=== PATIENT | female | born 1960 | race Two or more races ===

== ENCOUNTER 2025-02-14 15:00 | Inpatient (IN) | payer OTHER, MEDICAID ==
[~2025-02-14] VITALS: Ht 157.5 cm; Wt 86.7 kg
[2025-02-14 16:26] LABS: Urine Bacteria None Seen /hpf (None Seen)
[2025-02-14 16:40] LABS: Urine Blood Negative /uL (Negative); Urine Clarity Clear (Clear); Urine Color Light-Yellow (Yellow); Urine Protein, UAD Negative (Negative); Urine Specific Gravity 1.019 (1.001-1.035); Urine Squamous Epithelial Cell FEW /hpf (<5); Urine Urobilinogen Normal (Negative); Urine WBC 1 /HPF (0-5); Urine pH 6.5 (5.0-9.0)
[2025-02-14 17:47] LABS: Basophils # (auto) 0.1 10 ^3/uL (0-0.2); Basophils % (auto) 0.7 % (0.0-2.0); Eosinophils # (auto) 0 10 ^3/uL (0-0.8); Eosinophils % (auto) 0.3 % (0.0-7.0); Hematocrit 48.3 % (36.0-46.0); Hemoglobin 16.3 g/dL (12.2-16.2); Lymphocytes # (auto) 1.4 10 ^3/uL (0.4-5.4); Lymphocytes % (auto) 16.6 % (10.0-50.0); Mean Corpuscular Hemoglobin 33.1 pg (28.0-32.0); Mean Corpuscular Hgb Conc. 33.8 g/dL (32.0-36.0); Mean Corpuscular Volume 98.1 fL (80.0-100.0); Monocytes # (auto) 0.3 10 ^3/uL (0-1.3); Monocytes % (auto) 3.6 % (0.0-12.0); Neutrophils # (auto) 6.5 10 ^3/uL (1.6-8.6); Neutrophils % (auto) 78.8 % (37.0-80.0); Nucleated Red Blood Cells % 0.3 %; Platelet Count (auto) 203 10^3/uL (140-450); Red Blood Cells 4.92 10^6/uL (4.0-5.20); Red Cell Distribution Width 14.1 % (11.8-14.3); White Blood Cell 8.2 10^3/uL (4.4-10.8)
--- NOTE | 2025-02-14 17:57 | ED.PDOC ---
Back pain HPI HPI Comments 64 y.o female presents to the ED via EMS for a chief complaint of right sided abdomen pain radiating to her back that started one week ago s/p sneezing. Patient reports pain is constant and sharp with no alleviating factors. Patient reports 25 years ago having same strain that went away on its own but states since that sneeze, she feels that pain reactivated. Chief Complaint: Flank Pain Time Seen by MD: 17:50 Reviewed Notes: Nurses Notes, Marine Equipment Design Engineer Notes, Medications, Allergies Allergies: Coded Allergies: NO KNOWN ALLERGIES (Unverified , 02/14/25) Home Meds Active Scripts Gabapentin (Once-Daily) (Gabapentin) 300 Mg Tab, 300 MG PO Q6HP PRN for 10 Days, #40 TAB Prov:SHIN LEWIS MD 02/14/25 Information Source: Patient Mode of Arrival: EMS Timing: Weeks (1) Duration: Since onset Severity: Moderate Quality: Stabbing Onset: Spontaneous History of: None Modifying Factors: Nothing Associated signs and symptoms: Other Past Medical History PAST MEDICAL HISTORY: Denies Surgical History: Denies all surgeries ELECTRONIC DEVICE REPAIRER History: No Pertinent ELECTRONIC DEVICE REPAIRER History Family History Family History: Reviewed,noncontributory to illness Social History Smoker: Non-Smoker Alcohol: Denies ETOH Use Drugs: Denies Drug Use Lives In: Home Constitutional: denies: chills, diaphoresis, fatigue, fever, malaise, sweats, weakness, others EENTM: denies: blurred vision, double vision, ear bleeding, ear discharge, ear drainage, ear pain, ear ringing, eye pain, eye redness, hearing loss, mouth pain, mouth swelling, nasal discharge, nose bleeding, nose congestion, nose pain, photophobia, tearing, throat pain, throat swelling, voice changes, others Respiratory: denies: cough, hemoptysis, orthopnea, SOB at rest, shortness of breath, SOB with excertion, stridor, wheezing, others Cardiovascular: denies: chest pain, dizzy spells, diaphoresis, Dyspnea on exertion, edema, irregular heart beat, left arm pain, lightheadedness, palpitations, PND, syncope, others Gastrointestinal: denies: abdomen distended, abdominal pain, blood streaked bowels, constipated, diarrhea, dysphagia, difficulty swallowing, hematemesis, melena, nausea, poor appetite, poor fluid intake, rectal bleeding, rectal pain, vomiting, others Genitourinary: denies: abnormal vagina bleeding, burning, dyspareunia, dysuria, flank pain, frequency, hematuria, incontinence, pain, , vagina discharge, urgency, others Neurological: denies: dizziness, fainting, headache, left sided numbness, left sided weakness, numbness, paresthesia, pre-existing deficit, right sided numbness, right sided weakness, seizure, speech problems, tingling, tremors, weakness, others Musculoskeletal: reports: others (right sided abdomen pain radiating to her flank and back ); denies: back pain, gout, joint pain, joint swelling, muscle pain, muscle stiffness, neck pain Integumetry: denies: bruises, change in color, change in hair/nails, dryness, laceration, lesions, lumps, rash, wounds, others Allergic/Immunocompromised: denies: Difficulty Healing, Frequent Infections, Hives, Itching, others Hematologic/Lymphatic: denies: anemia, blood clots, easy bleeding, easy bruising, swollen glands, others Endocrine: denies: excessive hunger, excessive sweating, excessive thirst, excessive urination, flushing, intolerance to cold, intolerance to heat, unexplained weight gain, unexplained weight loss, others Psychiatric: denies: anxiety, bipolar disorder, depression, hopeless, panic disorder, schizophrenia, sleepless, suicidal, others All Other Systems: Reviewed and Negative Physical Exam General Appearance: No Apparent Distress, Normal HEENT: Normal ENT Inspection, Pharynx Normal, TMs Normal Neck: Full Range of Motion, Non-Tender, Normal, Normal Inspection Respiratory: Chest Non-Tender, Lungs Clear, No Accessory Muscle Use, No Respiratory Distress, Normal Breath Sounds Cardiovascular: No Edema, No JVD, No Murmur, No Gallop, Normal Peripheral Pulses, Regular Rate/Rhythm Breast Exam: Deferred Gastrointestinal: No Organomegaly, Non Tender, No Pulsatile Mass, Normal Bowel Sounds, Soft Genitalia: Deferred Pelvic: Deferred Rectal: Deferred Extremities: No calf tenderness, Normal capillary refill, Normal inspection, Normal range of motion, Non-tender, No pedal edema Musculoskeletal : Location: Right Extremity Location: Back, Other (flank ) Apperance: Tenderness: Mild Neurologic: Alert, locomotive boilermaker II-XII nml as Tested, No Motor Deficits, Normal Affect, Normal Mood, No Sensory Deficits Cerebellar Function: Normal Reflexes: Normal Skin: Dry, Normal Color, Warm Lymphatic: No Adenopathy Was a procedure done? Was a procedure done?: No Back Pain Differential Dx Differential Diagnosis: Fracture, Musculoskeletal Pain, Strain X-Ray, Labs, Meds, VS Vital Signs Date Time Temp Pulse Resp B/P (MAP) Pulse Ox O2 Delivery O2 Flow Rate FiO2 02/14/25 15:14 98.3 68 20 119/51 (73) 95 98.3 Lab Test 02/14/25 17:15 02/14/25 16:24 Range/Units White Blood Count 8.2 4.4-10.8 10^3/uL Red Blood Count 4.92 4.0-5.20 10^6/uL Hemoglobin 16.3 H 12.2-16.2 g/dL Hematocrit 48.3 H 36.0-46.0 % Mean Corpuscular Volume 98.1 80.0-100.0 fL Mean Corpuscular Hemoglobin 33.1 H 28.0-32.0 pg Mean Corpuscular Hemoglobin Concent 33.8 32.0-36.0 g/dL Red Cell Distribution Width 14.1 11.8-14.3 % Platelet Count 203 140-450 10^3/uL Mean Platelet Volume 8.3 6.9-10.8 fL Neutrophils (%) (Auto) 78.8 37.0-80.0 % Lymphocytes (%) (Auto) 16.6 10.0-50.0 % Monocytes (%) (Auto) 3.6 0.0-12.0 % Eosinophils (%) (Auto) 0.3 0.0-7.0 % Basophils (%) (Auto) 0.7 0.0-2.0 % Neutrophils # (Auto) 6.5 1.6-8.6 10 ^3/uL Lymphocytes # (Auto) 1.4 0.4-5.4 10 ^3/uL Monocytes # (Auto) 0.3 0-1.3 10 ^3/uL Eosinophils # (Auto) 0 0-0.8 10 ^3/uL Basophils # (Auto) 0.1 0-0.2 10 ^3/uL Nucleated Red Blood Cells 0.3 % Sodium Level 137 136-145 mmol/L Potassium Level 4.1 3.5-5.1 mmol/L Chloride Level 107 98-107 mmol/L Carbon Dioxide Level 23 20-31 mmol/L Anion Gap 7 5-15 Blood Urea Nitrogen 11 9-23 mg/dL Creatinine 0.76 0.550-1.02 mg/dL Glomerular Filtration Rate Calc 86 >90 mL/min BUN/Creatinine Ratio 14.5 10.0-20.0 Serum Glucose 124 H 74-106 mg/dL Calcium Level 9.8 8.7-10.4 mg/dL Total Bilirubin 0.3 0.2-1.0 mg/dL Aspartate Amino Transferase (AST) 15 13-40 U/L Alanine Aminotransferase (ALT) 16 7-40 U/L Alkaline Phosphatase 103 46-116 U/L Total Protein 7.5 5.7-8.2 g/dL Albumin 4.7 3.2-4.8 g/dL Lipase 122 H 12-53 U/L Urine Color Light-yellow Yellow Urine Clarity Clear Clear Urine pH 6.5 5.0-9.0 Urine Specific [place] 1.019 1.001-1.035 Urine Protein Negative Negative Urine Ketones Negative Negative Urine Blood Negative Negative /uL Urine Nitrite Negative Negative Urine Bilirubin Negative Negative Urine Urobilinogen Normal Negative mg/dL Urine Leukocyte Esterase Negative Negative /uL Urine RBC 1 0 - 4 /hpf Urine Microscopic WBC 1 0-5 /HPF Urine Squamous Epithelial Cells Few <5 /hpf Urine Bacteria None seen None Seen /hpf Urine Glucose Normal Normal mg/dL Exam: CT CT AB PEL WO CON-NO ORAL OR IV History: right flank pain Comparison Study: None available at time of dictation. TECHNIQUE: Multidetector CT of the abdomen was performed from lung bases to pubic symphysis. Imaging was performed without IV contrast. Axial, coronal and sagittal multiplanar reformats were obtained from the axial data set by the technologist. Radiation Dose Information: CT Dose: CTDI volume is 18.45 mGy. Dose-length product is 989.5 mGy*cm FINDINGS: Evaluation of solid organs is limited due to lack of intravenous contrast use. Findings: Lung Bases: No acute or significant lung base finding. Normal heart size. No pleural or pericardial effusion. Liver: The liver is normal in size. No focal lesions. Gallbladder and Biliary Tree: Gallbladder has been surgically removed. Spleen: Unremarkable Pancreas: The pancreas is grossly normal in appearance. Adrenal Glands: Unremarkable Kidneys: . No nephrolithiasis on the right. Radiographically there is no evidence nephrosis on the right. Multiple surgical clips in the left renal fossa and findings suggesting a nephrectomy. Bladder: Grossly unremarkable for degree of distention. There is a round near the right ureteral vesicle junction. This may represent a calcified phlebolith or a distal ureteral calculus. Bowel: The stomach is grossly normal in appearance. Small bowel and colon are normal in caliber and distribution. The appendix is not visualized; however, no secondary findings of acute appendicitis identified. Ascites: Absent Lymphadenopathy: No mesenteric, retroperitoneal or periportal lymphadenopathy. Abdominal Wall and Mesentery: Unremarkable. Vasculature: The visualized abdominal aorta is normal in size and caliber. Evaluation of abdominal and pelvic vessels is limited due to lack of intravenous contrast. Pelvic Organs: Unremarkable Musculoskeletal: No aggressive focal bony lesions, acute fractures or disloca tion. Soft tissues: Unremarkable IMPRESSION: 1. Patient is status post left nephrectomy 2. No nephrolithiasis or hydronephrosis on the right. 3. 5 mm round calcification near the right ureterovesical junction. This may represent a distal ureteral calculus or phlebolith. If this is a distal right ureteral calculus should be evidence of hydronephrosis which is not apparent on this CT. Consider right renal ultrasound for further evaluation. Time of 1ST Reevaluation: 20:51 Reevaluation 1ST: Unchanged Patient Education/Counseling: Diagnosis, Treatment, Prognosis Family Education/Counseling: No Family Present Departure 1 Departure Time of Disposition: 20:51 Impression: Primary Impression: Muscular abdominal pain in right flank Additional Impression: Right flank pain Disposition: 01 HOME / SELF CARE / HOMELESS Condition: Stable e-Prescriptions Gabapentin (Once-Daily) (Gabapentin) 300 Mg Tab 300 MG PO Q6HP PRN for 10 Days, #40 TAB Prov: SHIN LEWIS MD 02/14/25 Discharged With: Self Critical Care Note Critical Care Time?: No Stability Stability form required: No I personally scribed for SHIN LEWIS MD ([email or web address]) on 02/14/25 at 17:57. Electronically submitted by Cristina Dutta ([facility]). I personally scribed for SHIN LEWIS MD ([email or web address]) on 02/14/25 at 20:24. Electronically submitted by Cristina Dutta ([facility]). SHIN LEWIS MD Feb 14, 2025 17:57
[2025-02-14 17:59] LABS: Alanine Aminotransferase 16 U/L (7-40); Albumin 4.7 g/dL (3.2-4.8); Alkaline Phosphatase 103 U/L (46-116); Anion Gap 7 (5-15); Aspartate Aminotransferase 15 U/L (13-40); BUN/Creatinine Ratio 14.5 (10.0-20.0); Blood Urea Nitrogen 11 mg/dL (9-23); Calcium 9.8 mg/dL (8.7-10.4); Carbon Dioxide 23 mmol/L (20-31); Potassium 4.1 mmol/L (3.5-5.1); Sodium 137 mmol/L (136-145); Total Protein 7.5 g/dL (5.7-8.2)
[2025-02-14 18:00] LABS: Bilirubin, Total 0.3 mg/dL (0.2-1.0)
[2025-02-14 18:04] LABS: Chloride 107 mmol/L (98-107); Glucose 124 mg/dL (74-106); Lipase 122 U/L (12-53)
--- NOTE | 2025-02-14 20:07 | DVH ---
Exam: CT CT AB PEL WO CON-NO ORAL OR IV History: right flank pain Comparison Study: None available at time of dictation. TECHNIQUE: Multidetector CT of the abdomen was performed from lung bases to pubic symphysis. Imaging was performed without IV contrast. Axial, coronal and sagittal multiplanar reformats were obtained fr om the axial data set by the technologist. Radiation Dose Information: CT Dose: CTDI volume is 18.45 mGy. Dose-length product is 989.5 mGy*cm FINDINGS: Evaluation of solid organs is limited due to lack of intravenous contrast use. Findings: Lung Bases: No acute or significant lung base finding. Normal heart size. No pleural or pericardial effusion. Liver: The liver is normal in size. No focal lesions. Gallbladder and Biliary Tree: Gallbladder has been surgically removed. Spleen: Unremarkable Pancreas: The pancreas is grossly normal in appearance. Adrenal Glands: Unremarkable Kidneys: . No nephrolithiasis on the right. Radiographically there is no evidence nephrosis on the ri ght. Multiple surgical clips in the left renal fossa and findings suggesting a nephrectomy. Bladder: Grossly unremarkable for degree of distention. There is a round near the right ureteral vesi brigido junction. This may represent a calcified phlebolith or a distal ureteral calculus. Bowel: The stomach is grossly normal in appearance. Small bowel and colon are normal in caliber and d istribution. The appendix is not visualized; however, no secondary findings of acute appendicitis id entified. Ascites: Absent Lymphadenopathy: No mesenteric, retroperitoneal or periportal lymphadenopathy. Abdominal Wall and Mesentery: Unremarkable. Vasculature: The visualized abdominal aorta is normal in size and caliber. Evaluation of abdominal a nd pelvic vessels is limited due to lack of intravenous contrast. Pelvic Organs: Unremarkable Musculoskeletal: No aggressive focal bony lesions, acute fractures or dislocation. Soft tissues: Unremarkable IMPRESSION: 1. Patient is status post left nephrectomy 2. No nephrolithiasis or hydronephrosis on the right. 3. 5 mm round calcification near the right ureterovesical junction. This may represent a distal urete ral calculus or phlebolith. If this is a distal right ureteral calculus should be evidence of hydrone phrosis which is not apparent on this CT. Consider right renal ultrasound for further evaluation. Radiation optimization: All CT scans at this facility use at least one of these dose optimization jeremiah hniques: automated exposure control mA and/or kV adjustment per patient size (includes targeted exam s where dose is matched to clinical indication) or iterative reconstruction. HS:Y
[2025-02-14] MEDS ORDERED: GABA300T4 PO (20:50)
[2025-02-14] MEDS: HYDROcodone-ACET 10/325MG TAB PO ONE (21:17)
[2025-02-14] MEDS: ONDANSETRON HCL 4 MG/2 ML VIAL IV ONE (21:41)
[2025-02-14] MEDS: SODIUM CHLORIDE 0.9% 1,000 ML IV ONE (21:41)
[2025-02-14] MEDS: MORPHINE SULFATE 4 MG/ML SYR/VIAL IV ONE (21:53)
[2025-02-15] VITALS (7 sets, daily range): BP systolic 112–157; BP diastolic 59–74; PULSE 18–106; RESP 18–20; TEMP 97.9–99.1; O2SAT 92–96
--- NOTE | 2025-02-15 01:05 | DVHHPRES ---
History of Present Illness Resident Creating Document: CHEMO CARRERA Reason for Visit: right hip pain History of Present Illness Patient is a 64-year-old female with a past medical history of hypertension presented to the ED with a week history of right flank/hip pain that began after sneezing. Patient described the pain as sharp, exacerbated by movement and unable to sleep at night. She also reported associated symptoms such as malaise, nausea, and vomiting. Per the patient, the vomiting has become intractable making if difficult to maintain any oral feeds. She denies fever, chills. Over the past week, the right hip/flank pain has been progressively getting worse and unresponsive to over the counter pain medication. Thus promoting this visit. Of note, patient said she fell on a dance floor and landed on her right hip 25 years ago. She had pains, but never went to the hospital to have it checked. The pain is now unrelenting and affecting her activities of daily living. PMHX: Hypertension PSHX; left nephrectomy at age 12, cholecystectomy, tonsillectomy, right knee meniscal repair Family history: noncontributory Medication history: Metoprolol and benazepril Past Medical History see HPI Past Surgical History See HPI Review of Systems Review of Systems Constitutional: Denies fever no chills no feeling of malaise HEENT: Denies headache, ear pain, ear discharges, conjunctivitis, nasal discharge throat pain Cardiovascular: Denies chest pain, palpitation, orthopnea, PND, or pedal edema Respiratory: Denies shortness of breath, cough cough, sputum production, hemoptysis, GI: Denies abdominal pain, nausea, vomiting, diarrhea, hematemesis, hematochezia, : Denies frequency, urgency, hematuria, Endocrine: Denies unintentional weight gain or weight loss, feeling of hot flashes, Rene: Denies easy bruising, bleeding disorders, epistaxis Musculoskeletal: right hip and mid lower back pain, muscle aches SKIN: redness on her chest, from sunburn Psych: No evidence of depression, francois, suicidal ideation Allergies: Coded Allergies: NO KNOWN ALLERGIES (Unverified , 02/14/25) Exam Vital Signs Vital Signs Date Time Temp Pulse Resp B/P (MAP) Pulse Ox O2 Delivery O2 Flow Rate FiO2 02/14/25 21:02 98.3 60 18 150/92 (111) 97 98.3 Exam General Appearance: Alert, Oriented X3, Cooperative, No acute distress HEENT: Atraumatic, PERRLA, EOMI, Mucous membrane moist/pink Respiratory: Clear to auscultation, Normal air movement Cardiovascular: Regular rate, Normal S1, Normal S2, No murmurs, no chest wall tenderness Abdominal: NO distention, no tenderness, bowel sounds present, no scars noted Extremities: No clubbing, No cyanosis, No edema, Normal pulses, No tenderness/swelling Skin: No rashes, No breakdown, No significant lesion Neuro: Normal gait, Normal speech, Strength at 5/5 X4 ext, Normal tone, Sensation intact, Cranial nerves 3-12 NL, Reflexes 2+; NO neurological Deficit noted Psych/Mental Status: Mental status NL, Mood NL Musculoskeletal:No tenderness at the time of my evaluation Labs/Xrays Labs Test 02/14/25 17:15 02/14/25 16:24 Range/Units White Blood Count 8.2 4.4-10.8 10^3/uL Red Blood Count 4.92 4.0-5.20 10^6/uL Hemoglobin 16.3 H 12.2-16.2 g/dL Hematocrit 48.3 H 36.0-46.0 % Mean Corpuscular Volume 98.1 80.0-100.0 fL Mean Corpuscular Hemoglobin 33.1 H 28.0-32.0 pg Mean Corpuscular Hemoglobin Concent 33.8 32.0-36.0 g/dL Red Cell Distribution Width 14.1 11.8-14.3 % Platelet Count 203 140-450 10^3/uL Mean Platelet Volume 8.3 6.9-10.8 fL Neutrophils (%) (Auto) 78.8 37.0-80.0 % Lymphocytes (%) (Auto) 16.6 10.0-50.0 % Monocytes (%) (Auto) 3.6 0.0-12.0 % Eosinophils (%) (Auto) 0.3 0.0-7.0 % Basophils (%) (Auto) 0.7 0.0-2.0 % Neutrophils # (Auto) 6.5 1.6-8.6 10 ^3/uL Lymphocytes # (Auto) 1.4 0.4-5.4 10 ^3/uL Monocytes # (Auto) 0.3 0-1.3 10 ^3/uL Eosinophils # (Auto) 0 0-0.8 10 ^3/uL Basophils # (Auto) 0.1 0-0.2 10 ^3/uL Nucleated Red Blood Cells 0.3 % Sodium Level 137 136-145 mmol/L Potassium Level 4.1 3.5-5.1 mmol/L Chloride Level 107 98-107 mmol/L Carbon Dioxide Level 23 20-31 mmol/L Anion Gap 7 5-15 Blood Urea Nitrogen 11 9-23 mg/dL Creatinine 0.76 0.550-1.02 mg/dL Glomerular Filtration Rate Calc 86 >90 mL/min BUN/Creatinine Ratio 14.5 10.0-20.0 Serum Glucose 124 H 74-106 mg/dL Calcium Level 9.8 8.7-10.4 mg/dL Total Bilirubin 0.3 0.2-1.0 mg/dL Aspartate Amino Transferase (AST) 15 13-40 U/L Alanine Aminotransferase (ALT) 16 7-40 U/L Alkaline Phosphatase 103 46-116 U/L Total Protein 7.5 5.7-8.2 g/dL Albumin 4.7 3.2-4.8 g/dL Lipase 122 H 12-53 U/L Urine Color Light-yellow Yellow Urine Clarity Clear Clear Urine pH 6.5 5.0-9.0 Urine Specific [place] 1.019 1.001-1.035 Urine Protein Negative Negative Urine Ketones Negative Negative Urine Blood Negative Negative /uL Urine Nitrite Negative Negative Urine Bilirubin Negative Negative Urine Urobilinogen Normal Negative mg/dL Urine Leukocyte Esterase Negative Negative /uL Urine RBC 1 0 - 4 /hpf Urine Microscopic WBC 1 0-5 /HPF Urine Squamous Epithelial Cells Few <5 /hpf Urine Bacteria None seen None Seen /hpf Urine Glucose Normal Normal mg/dL Assessment/Plan Assessment/Plan Assessment Questionable Acute pancreatitis Right hip pain, rule out radiculopathy vs uteric stone Grade II obesity Hypertension Hyperglycemia Dehydration History of left nephrectomy Plan Keep patient NPO, LR 1000ml bolus and recheck the lipase with morning lab Pain management with morphine 2 mg [id number] Renal US to rule out a ureteric stone Rt hip x-ray--> Pending Hgb A1 cells--> Pending Can resume home antihypertensive medication tomorrow Physical therapy DVT prophylaxis; Lovenox Diet: NPO Goal of care discussed for more than 25 minutes: Full Code Case and plan discussed with Dr. Scott Plan discussed with: Patient Date of Service: Feb 15, 2025 Billing Provider: ZAYNAB SCOTT MD Common Visit Codes: [id number] INP/OBS CARE (HIGH) Secondary Visit Codes: [id number] CARE PLAN 30 MINUTES CHEMO CARRERA RESIDENT Feb 15, 2025 01:05 ZAYNAB SCOTT MD Feb 15, 2025 11:23
[2025-02-15] MEDS ORDERED: MORPHINE SULFATE INJ 2 MG/ml SYRG IV PRN (02:00)
[2025-02-15] MEDS: LACTATED RINGER'S 1,000 ML IV ONE (02:09)
[2025-02-15] MEDS: HYDROcodone-ACET 5/325MG TAB PO PRN (03:40)
[2025-02-15] MEDS: ENOXAPARIN SOD 40 MG/0.4 ML SYRINGE SC ONE (03:40)
[2025-02-15] MEDS ORDERED: ATOR10TA PO (05:30)
[2025-02-15] MEDS ORDERED: BENA10TA90 PO (05:30)
[2025-02-15] MEDS ORDERED: IBUP-1456 PO (05:30)
[2025-02-15] MEDS ORDERED: METO-158 PO (05:30)
[2025-02-15] MEDS ORDERED: CARB200T4 PO (05:30)
--- NOTE | 2025-02-15 08:24 | DVH ---
INDICATION: STONES TECHNIQUE: Multiple real-time sonographic images of the kidneys and bladder were obtained. COMPARISON: None FINDINGS: The right kidney measures 13 cm in length, which is normal in size. There is normal echogen icity of the right kidney. No hydronephrosis. Left kidney surgically absent. Distended bladder 276 cc. IMPRESSION: 1. Normal sonographic appearance of the kidneys. No hydronephrosis.
[2025-02-15] MEDS: ONDANSETRON HCL 4 MG/2 ML VIAL IV PRN (09:30)
[2025-02-15] MEDS ORDERED: TROLAMINE SALICYLATE 10% TOP CREAM TOP PRN (11:00)
[2025-02-15 11:05] LABS: Basophils # (auto) 0 10 ^3/uL (0-0.2); Basophils % (auto) 0.6 % (0.0-2.0); Eosinophils # (auto) 0 10 ^3/uL (0-0.8); Eosinophils % (auto) 0.2 % (0.0-7.0); Hematocrit 41.3 % (36.0-46.0); Lymphocytes # (auto) 1.5 10 ^3/uL (0.4-5.4); Lymphocytes % (auto) 19.5 % (10.0-50.0); Mean Corpuscular Hgb Conc. 33.9 g/dL (32.0-36.0); Mean Corpuscular Volume 97.1 fL (80.0-100.0); Monocytes # (auto) 0.7 10 ^3/uL (0-1.3); Monocytes % (auto) 9.4 % (0.0-12.0); Neutrophils # (auto) 5.5 10 ^3/uL (1.6-8.6); Neutrophils % (auto) 70.3 % (37.0-80.0); Platelet Count (auto) 185 10^3/uL (140-450); Red Blood Cells 4.25 10^6/uL (4.0-5.20); Red Cell Distribution Width 14.1 % (11.8-14.3); White Blood Cell 7.8 10^3/uL (4.4-10.8)
--- NOTE | 2025-02-15 11:14 | DVHPN2 ---
Subjective 64-year-old female who was admitted for right hip pain No dysuria No hematuria She felt the pain when she was coughing or sneezing No falls Changes from previous H/P or p: Changes Objective Vitals Vital Signs Date Time Temp Pulse Resp B/P (MAP) Pulse Ox O2 Delivery O2 Flow Rate FiO2 02/15/25 09:18 98.6 106 20 122/65 (84) 92 98.6 02/15/25 08:00 Room Air* 0 21 Intake/Output Intake and Output 02/15/25 07:00 Intake Total 1000 ml Balance 1000 ml Intake Oral 0 ml IV Total 1000 ml # Voids 1 General Appearance: Alert, Oriented X3, Cooperative, No acute distress Lungs: Clear to auscultation, Normal air movement Cardiovascular: Regular rate, Normal S1, Normal S2 Abdomen: Normal bowel sounds, Soft, No tenderness Extremities: No edema Medications Current Medications Medications Dose Ordered Sig/Vazquez Route Start Time Stop Time Status Last Admin Dose Admin Acetaminophen 650 mg Q6HP PRN PO 02/15/25 01:30 Enoxaparin Sodium 40 mg DAILY SC 02/16/25 10:00 Ondansetron HCl 4 mg Q4HPRN PRN IV 02/15/25 06:45 02/15/25 09:30 4 MG Trolamine Salicylate 1 applic Q6HP PRN TOP 02/15/25 11:00 UNV Benazepril HCl 10 mg DAILY PO 02/16/25 10:00 UNV Carbamazepine 200 mg Q12HR PO 02/15/25 22:00 UNV Patient Own Medication 1 tab DAILY PO 02/16/25 10:00 UNV Laboratory Results Chemistry Test 02/14/25 17:15 02/15/25 10:48 Albumin 4.7 g/dL (3.2-4.8) Pending Calcium Level 9.8 mg/dL (8.7-10.4) Pending Total Protein 7.5 g/dL (5.7-8.2) Pending Lipid panel Test 02/14/25 17:15 02/15/25 10:48 Lipase 122 U/L (12-53) H Pending Cholesterol Level Pending HDL Cholesterol Pending Triglycerides Level Pending LFT Test 02/14/25 17:15 02/15/25 10:48 Alanine Aminotransferase (ALT) 16 U/L (7-40) Pending Alkaline Phosphatase 103 U/L (46-116) Pending Aspartate Amino Transferase (AST) 15 U/L (13-40) Pending Total Bilirubin 0.3 mg/dL (0.2-1.0) Pending HgA1c, TSH Test 02/15/25 10:48 Hemoglobin A1c Pending Thyroid Stimulating Hormone (TSH) Pending Urinalysis Test 02/14/25 16:24 Urine Color Light-yellow (Yellow) Urine Clarity Clear (Clear) Urine pH 6.5 (5.0-9.0) Urine Specific [place] 1.019 (1.001-1.035) Urine Protein Negative (Negative) Urine Ketones Negative (Negative) Urine Blood Negative /uL (Negative) Urine Nitrite Negative (Negative) Urine Bilirubin Negative (Negative) Urine Urobilinogen Normal mg/dL (Negative) Urine Leukocyte Esterase Negative /uL (Negative) Urine RBC 1 /hpf (0 - 4) Urine Microscopic WBC 1 /HPF (0-5) Urine Squamous Epithelial Cells Few /hpf (<5) Urine Bacteria None seen /hpf (None Seen) Urine Glucose Normal mg/dL (Normal) Assessment/Plan Assessment/Plan Right hip pain Hypertension Dyslipidemia Obesity History of left nephrectomy due to an accident Plan X-ray of the right hip Pain management with Tylenol as needed Physical therapy evaluation Aspercreme p.r.n. topically to the right hip Resume the home medications for hypertension benazepril and for hyperlipidemia Lipitor Full code Advance directives discussed for 18 minutes Plan discussed with: Patient My Orders Orders - ANDREEA BELLAMY MD Procedure Category Date Status Time Cardiac DIET 02/15/25 Transmitted Diet-2gna,Lofat,Lochol Lunch R Hip Complete Xray XY 02/15/25 Logged 11:00 Trolamine Salicylate PHA 02/15/25 Logged Topical (Aspercreme 11:00 Benazepril Hcl Tablet PHA 02/16/25 Logged (Lotensin Tablet) 10:00 Carbamazepine Tablet PHA 02/15/25 Logged (Tegretol Tablet) 22:00 (Nf) Atorvastatin PHA 02/16/25 Logged Calcium (Lipitor) 10:00 Date of Service: Feb 15, 2025 Billing Provider: ANDREEA BELLAMY MD Common Visit Codes: [id number] INP/OBS CARE(HIGH) Secondary Visit Codes: [id number] CARE PLAN 30 MINUTES ANDREEA BELLAMY MD Feb 15, 2025 11:14
[2025-02-15 11:30] LABS: Triglycerides 102 mg/dL (< 150)
[2025-02-15 11:31] LABS: Alanine Aminotransferase 12 U/L (7-40); Albumin 4.1 g/dL (3.2-4.8); Alkaline Phosphatase 82 U/L (46-116); Aspartate Aminotransferase 14 U/L (13-40); BUN/Creatinine Ratio 12.5 (10.0-20.0); Blood Urea Nitrogen 9 mg/dL (9-23); Calcium 9.4 mg/dL (8.7-10.4); Carbon Dioxide 27 mmol/L (20-31); Potassium 3.5 mmol/L (3.5-5.1); Sodium 142 mmol/L (136-145); Total Protein 6.4 g/dL (5.7-8.2)
[2025-02-15] MEDS: ACETAMINOPHEN 325 MG TAB PO PRN (11:31)
[2025-02-15 11:32] LABS: Bilirubin, Total 0.5 mg/dL (0.2-1.0); HDL Cholesterol 44 mg/dL (40-59)
[2025-02-15 11:33] LABS: Cholesterol 184 mg/dL (< 200)
[2025-02-15 11:37] LABS: LDL Cholesterol 119 mg/dL (< 100)
[2025-02-15 11:38] LABS: Glucose 126 mg/dL (74-106)
[2025-02-15 11:43] LABS: Anion Gap 5 (5-15)
[2025-02-15 11:48] LABS: Hepatitis B Surface Antigen Negative (Negative)
[2025-02-15 11:49] LABS: Chloride 110 mmol/L (98-107)
[2025-02-15 11:51] LABS: Lipase 46 U/L (12-53)
[2025-02-15 12:10] LABS: Hepatitis C Antibody Negative (Negative)
--- NOTE | 2025-02-15 14:15 | DVH ---
CLINICAL INDICATION: pain TECHNIQUE: 1 radiographic views of the pelvis and 2 views of the right hip were obtained. Comparison: None FINDINGS/IMPRESSION: There is no evidence of acute fracture or dislocation. The visualized joint space is well maintained. The alignment is anatomical. There is no radiopaque foreign body.
[2025-02-15] MEDS: ATORVASTATIN 20 MG TAB PO SCH (21:07)
[2025-02-15] MEDS: carBAMazepine 200 MG TAB PO SCH (21:07)
[2025-02-16 01:00] VITALS: BP 125/68; PULSE 82; RESP 19; TEMP 97.9; O2SAT 94
[2025-02-16 08:00] VITALS: PULSE 71; RESP 20; O2SAT 95
[2025-02-16 08:45] VITALS: BP 141/87; PULSE 83; RESP 20; TEMP 98.4; O2SAT 93
[2025-02-16] MEDS: ENOXAPARIN SOD 40 MG/0.4 ML SYRINGE SC SCH (08:49)
[2025-02-16] MEDS: BENAZEPRIL HCL 10 MG TAB PO SCH (08:49)
--- NOTE | 2025-02-16 10:32 | DVHDS2 ---
Discharge Summary Date of Admission Feb 15, 2025 at 01:32 Date of Discharge: Feb 16, 2025 Labs/Diagnostic Data: Laboratory Results Test 02/15/25 10:48 02/14/25 16:24 White Blood Count 7.8 10^3/uL (4.4-10.8) Red Blood Count 4.25 10^6/uL (4.0-5.20) Hemoglobin 14.0 g/dL (12.2-16.2) Hematocrit 41.3 % (36.0-46.0) Mean Corpuscular Volume 97.1 fL (80.0-100.0) Mean Corpuscular Hemoglobin 33.0 pg (28.0-32.0) Mean Corpuscular Hemoglobin Concent 33.9 g/dL (32.0-36.0) Red Cell Distribution Width 14.1 % (11.8-14.3) Platelet Count 185 10^3/uL (140-450) Mean Platelet Volume 8.1 fL (6.9-10.8) Neutrophils (%) (Auto) 70.3 % (37.0-80.0) Lymphocytes (%) (Auto) 19.5 % (10.0-50.0) Monocytes (%) (Auto) 9.4 % (0.0-12.0) Eosinophils (%) (Auto) 0.2 % (0.0-7.0) Basophils (%) (Auto) 0.6 % (0.0-2.0) Neutrophils # (Auto) 5.5 10 ^3/uL (1.6-8.6) Lymphocytes # (Auto) 1.5 10 ^3/uL (0.4-5.4) Monocytes # (Auto) 0.7 10 ^3/uL (0-1.3) Eosinophils # (Auto) 0 10 ^3/uL (0-0.8) Basophils # (Auto) 0 10 ^3/uL (0-0.2) Nucleated Red Blood Cells 0.0 % Sodium Level 142 mmol/L (136-145) Potassium Level 3.5 mmol/L (3.5-5.1) Chloride Level 110 mmol/L (98-107) Carbon Dioxide Level 27 mmol/L (20-31) Anion Gap 5 (5-15) Blood Urea Nitrogen 9 mg/dL (9-23) Creatinine 0.72 mg/dL (0.550-1.02) Glomerular Filtration Rate Calc 92 mL/min (>90) BUN/Creatinine Ratio 12.5 (10.0-20.0) Serum Glucose 126 mg/dL (74-106) Hemoglobin A1c 5.5 % A1C (<5.7) Calcium Level 9.4 mg/dL (8.7-10.4) Total Bilirubin 0.5 mg/dL (0.2-1.0) Aspartate Amino Transferase (AST) 14 U/L (13-40) Alanine Aminotransferase (ALT) 12 U/L (7-40) Alkaline Phosphatase 82 U/L (46-116) Total Protein 6.4 g/dL (5.7-8.2) Albumin 4.1 g/dL (3.2-4.8) Triglycerides Level 102 mg/dL (< 150) Cholesterol Level 184 mg/dL (< 200) LDL Cholesterol 119 mg/dL (< 100) HDL Cholesterol 44 mg/dL (40-59) Lipase 46 U/L (12-53) Vitamin D 25-Hydroxy 17.3 ng/mL (30.0-100) Thyroid Stimulating Hormone (TSH) 0.58 uIU/mL (0.55-4.78) Hepatitis B Surface Antigen Negative (Negative) Hepatitis C Antibody Negative (Negative) Urine Color Light-yellow (Yellow) Urine Clarity Clear (Clear) Urine pH 6.5 (5.0-9.0) Urine Specific [place] 1.019 (1.001-1.035) Urine Protein Negative (Negative) Urine Ketones Negative (Negative) Urine Blood Negative /uL (Negative) Urine Nitrite Negative (Negative) Urine Bilirubin Negative (Negative) Urine Urobilinogen Normal mg/dL (Negative) Urine Leukocyte Esterase Negative /uL (Negative) Urine RBC 1 /hpf (0 - 4) Urine Microscopic WBC 1 /HPF (0-5) Urine Squamous Epithelial Cells Few /hpf (<5) Urine Bacteria None seen /hpf (None Seen) Urine Glucose Normal mg/dL (Normal) Other Laboratory Tests 02/15/25 10:48 Brief Hx & Hospital Course: Final diagnoses: Right hip pain Hypertension Dyslipidemia Obesity 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 Patient was counseled about treatment plan, medications, possible side effects, patientverbalized understanding. All questions were answered to the best of my ability. This discharge took greater then 30 minutes in planning, reviewing documentation, counseling the patient, and discussing with other team members." ASSESSMENT ASSESSMENT Assessment Date of Service: Feb 16, 2025 Billing Provider: ANDREEA BELLAMY MD Common Visit Codes: 66203-VFO/OBS DISCH DAY >30min ANDREEA BELLAMY MD Feb 16, 2025 10:32
[2025-02-16 12:46] VITALS: BP 135/75; PULSE 68; RESP 20; TEMP 98.3; O2SAT 94
[2025-02-16 13:05] VITALS: BP 141/87; PULSE 72; RESP 18; TEMP 98.7; O2SAT 98
== END 2025-02-16 14:00 | disposition home or self-care (01) | DRG 640 ==
LOC: EDBD 15:00 → ER 15:00 → OVERFLOW 02-15 01:32 → EAST 02-15 01:35
PROVIDERS: ADMIT Internal Medicine Geriatric Medicine; ATTEND Internal Medicine Geriatric Medicine
DX: E86.0 Dehydration (principal); N17.0 Acute kidney failure with tubular necrosis; S76.011A Strain of muscle, fascia and tendon of right hip, initial encounter; E78.5 Hyperlipidemia, unspecified; R73.9 Hyperglycemia, unspecified; I10 Essential (primary) hypertension; E66.812 Obesity, class 2; Z90.49 Acquired absence of other specified parts of digestive tract; Z90.5 Acquired absence of kidney; Z68.35 Body mass index [BMI] 35.0-35.9, adult; Z79.899 Other long term (current) drug therapy; X58.XXXA Exposure to other specified factors, initial encounter; Y93.89 Activity, other specified; Y92.89 Other specified places as the place of occurrence of the external cause; Y99.8 Other external cause status
CPT/HCPCS: 36415; 73502; 74176; 76775; 80053; 80061; 81001; 82306; 83036; 83690; 84443; 85025; 86803; 87340; 96361; 96374; 97110; 97116; 97163; 97530; G0378; J2405